=== PATIENT | female | born 1985 ===

== ENCOUNTER 2023-03-27 12:49 | Outpatient (AMB) | payer OTHER, SELFPAY ==
--- NOTE | 2023-03-27 13:10 | HO.SPINEOV ---
Intake Intake Visit Reasons: neck and lower back pain Intake Note: Ms. Hayes is here today c/o neck pain. [facility]. [employer] Required: No Assessment & Plan Assessment & Plan (1) Degenerative disc disease, cervical: Code(s): M50.30 - Other cervical disc degeneration, unspecified cervical region Plan Dear colleague Thank you for referring Jodie Hayes to the office today with a chief complaint of severe neck pain radiating down her right arm. 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 She developed additional right arm pain radiating to her right thumb and migraines with aura over the last 2 years. She also drops objects with her hand. She was operated for carpal tunnel syndrome which addressed some of the hand symptoms but she continues to complain of severe pain radiating down her right arm. She tried physical therapy and cortisone injections. The cortisone injection relieved her right-sided neck pain temporarily but the arm pain persisted. In addition she continues to try Tylenol , cyclobenzaprine and traction PMH: , carpal tunnel release Medications: Cyclobenzaprine and Tylenol Allergies: NKDA Social history: . Recently discontinued smoking Physical Exam: Pleasant female was in obvious agony. Rotation of the cervical spine is limited and painful. Spurling produces pain on the right side of her neck. 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 Normal sensation. Radiological Studies: MRI done at [facility] on 10/07/2021 shows moderate degenerative disc disease C5-C6 with right foraminal stenosis compressing the C6 nerve root. The remainder of the discs are of excellent quality Impression/Plan: This 38-year-old female is suffering from a C6 radiculopathy with neck pain due to degenerative disc disease C5-C6 with right C6 nerve root compression. The MRI cervical spine is more than 1-year-old and therefore I would like to repeat the MRI C-spine before doing a C5-6 total disc arthroplasty on 05/28/2023. Thank you for allowing me to participate in your patients care. total time spent was 50 minutes in counseling ,coordination of plan, personal review of imaging, surgical decision making and subsequent plan Omar Clark MD, PhD Spine Fellowship Trained Neurosurgeon Director, [facility] Orders: Orders MR cervical spine wo con Today M50.30 - Other cervical disc degeneration, unspecified cervical region Coding Level of Care Code New Pt Level 4 (54330) Diagnoses Degenerative disc disease, cervical M50.30
== END 2023-03-27 14:01 | disposition home or self-care (01) ==
PROVIDERS: PCP Internal Medicine; Visit Provider Neurological Surgery
DX: M50.30 Other cervical disc degeneration, unspecified cervical region (principal)
CPT/HCPCS: 99204

== ENCOUNTER → 2023-03-27 12:49 | Outpatient (BNVA) | payer OTHER, SELFPAY | PROVIDERS: PCP Internal Medicine; Visit Provider Neurological Surgery ==

== ENCOUNTER → 2023-05-10 | Outpatient (BNV) | payer OTHER, SELFPAY | PROVIDERS: PCP Internal Medicine; Visit Provider Internal Medicine Cardiovascular Disease | DX: Z01.818 Encounter for other preprocedural examination (principal); M50.30 Other cervical disc degeneration, unspecified cervical region | CPT/HCPCS: 93010 ==

== ENCOUNTER 2023-05-28 08:17 | Day surgery (SDC) | payer OTHER, SELFPAY ==
--- NOTE | 2023-05-10 | ECG_ITS ---
Test Reason : preop Blood Pressure : / mmHG Vent. Rate : 072 BPM Atrial Rate : 072 BPM P-R Int : 116 ms QRS Dur : 076 ms QT Int : 378 ms P-R-T Axes : 066 066 039 degrees QTc Int : 413 ms Normal sinus rhythm Low voltage QRS Borderline ECG No previous ECGs available Referred By: Nohelia Lui Electronically Signed By:DES MARCIAL MD
[2023-05-10 11:04] VITALS: BMI 32.5
--- NOTE | 2023-05-10 13:07 | HO.ANESPROP2 ---
Documented by User: Nohelia Lui NP 05/22/23 10:49 HPI - Anesthesia Eval Consult details Narrative: 38yo F for C5-6 Total Disc Arthroplasty, 05/28/23 PMFSH Active Problems Active Problems: All Active Problems (Updated 05/10/23 @ 10:58 by Jaimie King RN) Degenerative disc disease, cervical (Acute) Past Medical History Medical History Hx of ectopic Hx MRSA infection Back pain Neck pain Eczema Migraines Thyroid nodule Numbness Depression Anxiety Surgical History Surgical History S/P left knee arthroscopy Hx of vein stripping History of bunionectomy of both great toes History of pubovaginal sling History of carpal tunnel surgery of right wrist Social History Social History Household Members: Other Household Members Other:: daughter 18 yrs Housing: Apartment Are you a primary home health aide caregiver to a significant other at home: No Do you presently have visiting nurse or other home services: No Patient Tobacco Use Status: Current everyday Tobacco user Tobacco use type: Cigarette Cigarettes Per Day: 10 Years Smoked: 15 Smoked in Last 30 Days: Yes Use of substances other than those prescribed or required for medical reasons: No Have you been hit, kicked, punched, or otherwise hurt by someone within the past year? If so, by whom?: No Do you feel safe in your current relationship?: Yes Are you DNR?: No Advance Directives: No Advance Directives Information Provided: Yes Advance Directives on File: No Healthcare Proxy: No Recently lost weight without trying: No Nutrition Risks: No Nutritional Risk Patient : No FDLMP: 04/19/2023 : No Poor oral hygiene: No Meds Allergies Allergy/AdvReac Type Severity Reaction Status Date / Time amoxicillin Allergy Severe localized Verified 05/10/23 11:32 IV site-Hives, redness, itching hydrocodone [From Vicodin] Allergy Severe Itching, Verified 05/10/23 10:55 hives ibuprofen [From Motrin] Allergy Severe Hives, Verified 05/10/23 10:55 redness, itching iodine Allergy Severe Itching Verified 05/10/23 10:55 Home Medications Medication Instructions Recorded Confirmed Last Taken Type acetaminophen 500 mg tablet 1,000 mg PO Q6H PRN Pain 05/10/23 05/10/23 Unknown History albuterol sulfate 2.5 mg/3 mL 2.5 mg inhalation Q4H PRN wheezing 05/10/23 05/10/23 Unknown History (0.083 %) solution for nebulization cyclobenzaprine 10 mg tablet 10 mg PO TID PRN muscle spasm 05/10/23 05/10/23 Unknown History dupilumab 300 mg/2 mL subcutaneous mg subcut Q2W 05/10/23 Unknown History syringe (Dupixent) norethindrone (contraceptive) 0.35 0.35 mg PO DAILY 05/10/23 05/10/23 Unknown History mg tablet sumatriptan succinate 50 mg tablet 50 mg PO PRN Migraine Headache 05/10/23 Unknown History Exam Height,Weight and Vital Signs: Height 5 ft 1.5 in Weight 79.379 kg Pertinent Lab Results Pertinent Lab Results: Lab Results 05/10/23 Range/Units 14:22 WBC 10.0 (4.8-10.8) X10*3/uL RBC 4.75 (4.20-5.50) X10*6/uL Hgb 13.8 (12.0-16.0) g/dl Hct 41.4 (37.0-47.0) % MCV 87.2 (80.0-98.0) fL MCH 29.1 (27.0-33.0) pg MCHC 33.3 (31.0-35.0) g/dl RDW 13.5 (11.0-16.0) % Plt Count 280 (160-400) X10*3/uL MPV 9.7 (9.4-12.3) fL Absolute Nucleated RBC 0.000 (0.0-0.012) X10*3/uL Nucleated RBC % (auto) 0.0 (0.0-0.2) /100WBC Sodium 141 (135-145) mmol/L Potassium 4.5 (3.3-5.1) mmol/L Chloride 105 (96-108) mmol/L Carbon Dioxide 29 (22-29) mmol/L Anion Gap 12 (12-20) BUN 8 L (9-16) mg/dL Creatinine 0.77 (0.5-1.4) mg/dL Estim Creat Clear Calc 92.7 Estimated GFR > 60 Random Glucose 92 (60-115) mg/dL Calcium 9.8 (8.4-10.2) mg/dL TSH 0.46 (0.32-4.0) uIU/mL Narrative Narrative: EKG 05/2023 Vent. Rate : 072 BPM Atrial Rate : 072 BPM P-R Int : 116 ms QRS Dur : 076 ms QT Int : 378 ms P-R-T Axes : 066 066 039 degrees QTc Int : 413 ms Normal sinus rhythm Low voltage QRS Borderline ECG No previous ECGs available Assessment and Plan Assessment Anesthesia Assessment: Chart Reviewed Documented by User: Olive Chirinos MD 05/28/23 09:05 [facility] Past Medical History Medical History Hx of ectopic Hx MRSA infection Back pain Neck pain Eczema Migraines Thyroid nodule Numbness Depression Anxiety Family History Family history of problems with anesthesia: No Surgical History Surgical History S/P left knee arthroscopy Hx of vein stripping History of bunionectomy of both great toes History of pubovaginal sling History of carpal tunnel surgery of right wrist History of Problems with Anesthesia: No Social History Social History Household Members: Other Household Members Other:: daughter 18 yrs Housing: Apartment Are you a primary home health aide caregiver to a significant other at home: No Do you presently have visiting nurse or other home services: No Patient Tobacco Use Status: Current everyday Tobacco user Tobacco use type: Cigarette Cigarettes Per Day: 10 Years Smoked: 15 Smoked in Last 30 Days: Yes Use of substances other than those prescribed or required for medical reasons: No Have you been hit, kicked, punched, or otherwise hurt by someone within the past year? If so, by whom?: No Do you feel safe in your current relationship?: Yes Are you DNR?: No Advance Directives: No Advance Directives Information Provided: Yes Advance Directives on File: No Healthcare Proxy: No Recently lost weight without trying: No Nutrition Risks: No Nutritional Risk Patient : No FDLMP: 04/19/2023 : No Poor oral hygiene: No Meds Allergies Allergy/AdvReac Type Severity Reaction Status Date / Time amoxicillin Allergy Severe localized Verified 05/10/23 11:32 IV site-Hives, redness, itching hydrocodone [From Vicodin] Allergy Severe Itching, Verified 05/10/23 10:55 hives ibuprofen [From Motrin] Allergy Severe Hives, Verified 05/10/23 10:55 redness, itching iodine Allergy Severe Itching Verified 05/10/23 10:55 Home Medications Medication Instructions Recorded Confirmed Last Taken Type acetaminophen 500 mg tablet 1,000 mg PO Q6H PRN Pain 05/10/23 05/10/23 Unknown History albuterol sulfate 2.5 mg/3 mL 2.5 mg inhalation Q4H PRN wheezing 05/10/23 05/10/23 Unknown History (0.083 %) solution for nebulization cyclobenzaprine 10 mg tablet 10 mg PO TID PRN muscle spasm 05/10/23 05/10/23 Unknown History dupilumab 300 mg/2 mL subcutaneous mg subcut Q2W 05/10/23 Unknown History syringe (Dupixent) norethindrone (contraceptive) 0.35 0.35 mg PO DAILY 05/10/23 05/10/23 Unknown History mg tablet sumatriptan succinate 50 mg tablet 50 mg PO PRN Migraine Headache 05/10/23 Unknown History Exam Airway Mallampati Class: II TM Dist: >3cm Neck ROM: Full Heart: rrr Lungs: cta Assessment and Plan Assessment Anesthesia Assessment: Anesthesia Plan Discussed and Smoking Cess. Discussed Final Anesthetic Review Family History of Problems with Anesthesia: No History of Problems with Anesthesia: No NPO: Yes ASA Class: III Final Preanesthetic Review: No Changes in Pt Med Stat, Meds/Allgs Chart Reviewed, Consent Obtained/Reviewed and Anes Risks/Benef Reviewed Patient Risk: Intermediate Procedure Risk: Intermediate Anesthetic Plan Anesthetic Plan: GA Disposition: Standard PACU
[2023-05-10 13:56] VITALS: BP 101/66; PULSE 80; RESP 16; O2SAT 99
[2023-05-10 14:32] LABS: Hematocrit 41.4 % (37.0-47.0); Hemoglobin 13.8 g/dl (12.0-16.0); Mean Corpuscular HGB Conc 33.3 g/dl (31.0-35.0); Mean Corpuscular Hemoglobin 29.1 pg (27.0-33.0); Mean Corpuscular Volume 87.2 fL (80.0-98.0); Mean Platelet Volume 9.7 fL (9.4-12.3); Platelet Count 280 X10*3/uL (160-400); Red Blood Count 4.75 X10*6/uL (4.20-5.50); Red Cell Distribution Width 13.5 % (11.0-16.0)
[2023-05-10 15:12] LABS: Anion Gap 12 (12-20); Blood Urea Nitrogen 8 mg/dL (9-16); Calcium 9.8 mg/dL (8.4-10.2); Carbon Dioxide 29 mmol/L (22-29); Chloride 105 mmol/L (96-108); Creatinine Clr Calc Pharmacy 92.7; Estimated Glomerular Filt Rate > 60; Glucose Random 92 mg/dL (60-115); Potassium 4.5 mmol/L (3.3-5.1); Sodium 141 mmol/L (135-145)
[2023-05-10 15:29] LABS: TSH reflex Free T4 0.46 uIU/mL (0.32-4.0)
[2023-05-28] VITALS (11 sets, daily range): BP systolic 118–147; BP diastolic 57–86; PULSE 65–90; RESP 16–18; TEMP 36.1–36.3; O2SAT 96–100; BMI 36.2
--- NOTE | ~2023-05-28 | FL_ITS ---
EXAMINATION: XR FLUOROSCOPY WITH IMAGES CLINICAL INFORMATION: C5-C6 total disc arthroplasty. COMPARISON: None available. TECHNIQUE: Fluoroscopy Supervised By: Dr. Omar Clark. Fluoroscopy Time: 0.1 minute. Cumulative Dose: 2.26 mGy. DAP: 0.291 Gycm2. Images: 3. FINDINGS: Fluoroscopy guidance provided for ACDF at C5-C6 FL/FL guidance in OR IMPRESSION: Fluoroscopy guidance for ACDF at C5-C6.
--- NOTE | 2023-05-28 06:58 | MHC.SHP ---
Pre-Procedural Eval Section A Date of Service: 05/28/23 The patient is an INPATIENT: No Changes since office visit: No Cold of Flu in the past 2 weeks, No New Medical Problems, No Changes in Medication and No Patient answered all questions The History & Physical has been completed within 30 days and I have reviewed it.: No Section B Chief Complaint: Other cervical disc degeneration, unspecified cerv Allergies: Allergies Allergy/AdvReac Type Severity Reaction Status Date / Time amoxicillin Allergy Severe localized Verified 05/10/23 11:32 IV site-Hives, redness, itching hydrocodone [From Vicodin] Allergy Severe Itching, Verified 05/10/23 10:55 hives ibuprofen [From Motrin] Allergy Severe Hives, Verified 05/10/23 10:55 redness, itching iodine Allergy Severe Itching Verified 05/10/23 10:55 Review of Systems Sugical H&P ROS: Negative: Constitution, Cardiovascular, Respiratory, Neurological, Psychiatric, Hem-Onc, Allergic/Immunologic, Gastrointestinal, Genitourinary, Musculoskeletal, Integumentary, Endocrine and Eyes/Ears/Nose/Throat Exam Surgical H&P Exam: Not Evaluated: HEENT, Not Evaluated: Heart, Not Evaluated: Lungs, Not Evaluated: Extremities, Not Evaluated: Abdomen, Not Evaluated: Skin and Not Evaluated: Neurological Plan Diagnosis/Plan: Unchanged I have reviewed the history and physical and performed a pertinent physical examination on my patient. No changes have occurred unless specified. C5-6 total disk arthroplasty Time Spent With Patient Time: Total time managing care of this patient today _12___ minutes.
[2023-05-28 08:58] LABS: UPreg QC Valid YES; Urine Pregnancy NEGATIVE (NEGATIVE)
[2023-05-28] MEDS: Gabapentin 300 MG CAPSULE PO (09:12)
[2023-05-28] MEDS: Scopolamine 1.5 MG PATCH.TD.3 TRANSDERMA (09:12)
[2023-05-28] MEDS: methocarbamoL 750 MG TABLET PO (09:12)
[2023-05-28] MEDS: vancomycin HCL 1,500 MG in 0.9 % Sodium Chloride 500 ML 333.33 MG IV (09:13)
[2023-05-28] MEDS: Lactated Ringers 1,000 ML 100 ML IVCONT (09:13)
--- NOTE | 2023-05-28 11:44 | W.PM.OPN ---
Operative Note Operative Note Date of Service: 05/28/23 Narrative: Preoperative Diagnosis: neck pain and right cervical radiculopathy Procedure: [id number] discectomy, arthrodesis and implantation cage ; C5-6 anterior instrumentation ; local autograft; microscope Informed Consent was obtained for this operation. I have explained the nature, purpose and benefits of the operation. I have discussed the risks and benefit of the operation including possible complications or adverse events with patient/family. Alternative(s) were discussed with the patient with their relative benefits and risks as well as the consequences of not accepting the operation were included in obtaining consent. Surgeon: GAL ENGLAND MD, PHD Procedure Assisted By: caden Caraballo Description of Procedure: this 38-year-old female suffering from neck pain and right cervical radiculopathy. An MRI shows degenerative disc disease C5-6 with osteophyte formation and I foraminal stenosis. The procedure complications were explained. The patient was consented. The patient was brought to the operating room and endotracheally intubated. The patient was put in supine position with slight extension of the neck. Prep and drape was done followed by timeout. A mid cervical incision was made followed by opening of the platysma. The prevertebral fascia was reached following the natural planes while the physician assistant farm operations manager provided manual retraction. The prevertebral fascia was opened to expose the disc space. A spinal needle was placed in the disk space to confirm the correct level with xray. A large anterior osteophyte that fused the anterior part of C5 and C6 was encountered. I needed to resect the osseous bridge to gain access to the disc space. Originally, the patient was scheduled to undergo total disc arthroplasty but after contouring so much bone formation I switched procedure to an anterior diskectomy and fusion as in my opinion this would be more cost effective as the expensive artificial disc implant is most likely going to fuse with so much bone formation already present. The longus colli muscles were released bilaterally and a self retaining retractor was inserted. Two Sarona pins were placed in the C5-C6 vertebral bodies and distraction was give over the interspace. The discectomy was completed toward the posterior annulus of the disc. The microscope was brought in. The remainder of the discectomy was completed. The posterior ligament was opened and resected to expose the underlying dura. Osteophytes were resected from the body of C5-C6 and saved for autograft. Bilateral foraminotomies were done. Significant foraminal stenosis was encountered on the right side with large osteophytes that were resected to decompress the exiting nerve root. The endplates were prepared after which a 6 mm cage filled with autograft was inserted into the disc space. A separate attached plate was locked down with 2 x 14 mm screws as anterior instrumentation. Final x-rays in AP and lateral projection showed a satisfactory position of the implant. The physician assistant farm operations manager took over. The Sarona pin was removed. Hemostasis was done. He closed the incision in 2 layers with a 3-0 Vicryl. Steri-Strips used to approximate incision. An OpSite with Tegaderm was used to cover the incision. All sponge and needle counts were correct. Patient was extubated and transported in stable is to recovery room. Anesthesia: General Estimated Blood Loss (ml): minimal Duration of Surgery: 60 minutes Postoperative Plan: Discharge home Complications: None
--- NOTE | 2023-05-28 11:46 | PM.DS ---
DS: Providers Provider Date of Service: 05/28/23 Date of discharge: 05/28/23 Primary care physician: Ashley Gibson MD Admitting clinician: Omar Clark DS: Diagnosis Discharge Diagnosis (1) Degenerative disc disease, cervical: Status: Acute DS: Summary Time Attestation Discharge coordination time: Less than 30 minutes Quality: Safe Use of Opioids Does Pt have an Active Cancer Diagnosis on the Problem List?: No Quality: Stroke Does the patient have a stroke diagnosis?: No Physical Exam Vital Signs: Vital Signs: Last Vital Signs Temp 97.0 F 05/28/23 09:23 Pulse 65 05/28/23 09:23 Resp 16 05/28/23 09:23 BP 118/67 05/28/23 09:23 Pulse Ox 98 05/28/23 09:23 O2 Del Method Room Air 05/28/23 09:23 BMI result Body Mass Index 36.2 DS: Data Data Completed and Pending Labs on day of discharge: Laboratory Results - last 24 hr 05/28/23 08:40 Urine Test NEGATIVE Discharge Plan Discharge Patient Disposition: Home, Self-Care Referrals: Ashley Gibson MD [Primary Care Provider] - 1 Week Discharge Medications: New docusate sodium [Colace] 100 mg capsule 100 mg PO BID Qty: 20 0RF oxycodone 5 mg tablet See Rx Instructions .ROUTE .COMPLEX PRN (Reason: pain) Qty: 30 0RF Rx Instructions: 1 tab po q4 hours prn pain ; Partial Fill upon patient request. Continued cyclobenzaprine 10 mg tablet 10 mg PO TID PRN (Reason: muscle spasm) albuterol sulfate 2.5 mg /3 mL (0.083 %) solution for nebulization 2.5 mg inhalation Q4H PRN (Reason: wheezing) sumatriptan succinate 50 mg tablet 50 mg PO PRN (Reason: Migraine Headache) acetaminophen 500 mg Tablet 1,000 mg PO Q6H PRN (Reason: Pain) norethindrone (contraceptive) 0.35 mg tablet 0.35 mg PO DAILY Dupixent Syringe 300 mg/2 mL syringe subcut Q2W Discharge Orders: Discharge Order (Routine); Ordered 05/28/23 Ordered By: Robb Middleton Diet: Advance to usual diet Activity on Discharge: As tolerated Activity Restrictions/Additional Instructions: After your spinal surgery we ask you to observe the following restrictions/guidelines: Activity: It is normal to feel some discomfort as you increase your activity, but that will improve with time. We ask you avoid heavy lifting or acitivities that cause pain. As a general rule, 8lbs is a safe limit for lifting right after surgery. Walk as much as you feel comfortable but not to exhaustion. You will feel extra tired the first few days after surgery. Stay well hydrated. It is OK to walk up and down stairs You may return to driving when you are off narcotics (such as vicodin, oxycodone, dilaudid, etc), and you are back to normal functional capacity. If you have any concerns please check with office before driving. Return to work is specific to each patient and each surgery, so please speak with your doctor/PA at first follow up. Please bring paperwork such as FMLA at that time if you need it filled out. Medications: For optimum pain control, it is best to start with a combination of 500 mg of Tylenol every 4 hours with 600 mg of Motrin every 8 hours, and use narcotics as needed in between for breakthrough pain. We will give you a short supply of narcotics after surgery (usually one weeks worth). If you need more please call the office but do not use more than prescribed. You will need to give our office 48 hours notice if you need narcotics refilled and we do not fill narcotics on weekends or evenings. If you are on a narcotic, it is a good idea to take a stool softener such as colace or senna to avoid constipation If you take blood thinner such as aspirin, Plavix, Coumadin, Effient, Eliquis etc for conditions such as Afib, DVT, Pulmonary embolus, coronary disease, stents etc please speak with your surgeon about specific details as to when you can resume these medications. You can resume NSAIDs on post op day 1 (eg: Motrin, Naproxen, etc). Follow up: Please call the office, , after surgery to arrange a 3 week follow up for wound check. Wound Care: You may remove your dressing on the first day after surgery. You may leave open to air. Please do not remove the steri strips underneath. they will fall off on their own in one week. IT IS NORMAL FOR THE WOUND TO OOZE OR BE BLOODY FOR A FEW DAYS AFTER SURGERY. IF THIS HAPPENS JUST PLACE NEW DRESSING OVER IT TO AVOID STAINING CLOTHES. You may shower on post op day # 1 We ask that you do not let the water soak the wound. If it does get wet, just towel dry lightly. Please do not scrub your incision or place any type of chemical/ointment on the wound. No tub baths, pools or jacuzzis for one month. If you have any leaking or redness from your wound, or fevers, please call office
[2023-05-28] MEDS: fentaNYL citrate/PF 100 MCG/2 ML VIAL 25 MCG IVPUSH ×4 (11:58→12:15)
[2023-05-28] MEDS: oxyCODONE HCl Immed Release 5 MG TABLET PO (11:59)
[2023-05-28] MEDS: HYDROmorphone HCl 0.5 MG/0.5 ML SYRINGE IVPUSH (12:20)
[2023-05-28] MEDS: ondansetron HCL 4 MG/2 ML VIAL IVPUSH (12:53)
== END 2023-05-28 13:36 | disposition home or self-care (01) ==
PROVIDERS: Nurse Practitioner; PCP Internal Medicine; Visit Provider Neurological Surgery
PROC: (CPT 22551; principal; 2023-05-28 09:50)
DX: M50.30 Other cervical disc degeneration, unspecified cervical region (principal); M54.12 Radiculopathy, cervical region; E04.1 Nontoxic single thyroid nodule; F32.A Depression, unspecified; Z79.899 Other long term (current) drug therapy; Z88.1 Allergy status to other antibiotic agents; Z88.8 Allergy status to other drugs, medicaments and biological substances; Z91.041 Radiographic dye allergy status; Z98.890 Other specified postprocedural states; F17.210 Nicotine dependence, cigarettes, uncomplicated
CPT/HCPCS: 22551; 22853; 20936; 22845; 36415; 80048; 81025; 84443; 85027; 93005; C1713; J0131; J1170; J2250; J2405; J2704; J3010; J3371

== ENCOUNTER → 2023-05-28 08:17 | Outpatient (BNV) | payer OTHER, SELFPAY | PROVIDERS: PCP Internal Medicine; Visit Provider Neurological Surgery | DX: M50.30 Other cervical disc degeneration, unspecified cervical region (principal) | CPT/HCPCS: 20936; 22551; 22845; 22853; 99499 ==

== ENCOUNTER 2023-06-26 12:47 | Outpatient (AMB) | payer OTHER, SELFPAY ==
--- NOTE | 2023-06-26 13:04 | A.OFFVIS_ITS ---
Intake Intake Visit Reasons: 1st. 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: No Allergies amoxicillin Allergy (Severe, Verified 05/28/23 09:14) localized IV site-Hives, redness, itching hydrocodone [From Vicodin] Allergy (Severe, Verified 05/28/23 09:14) Itching, hives ibuprofen [From Motrin] Allergy (Severe, Verified 05/28/23 09:14) Hives, redness, itching iodine Allergy (Severe, Verified 05/28/23 09:14) Itching PFSH Medical History Hx of ectopic Hx MRSA infection Back pain Neck pain Eczema Migraines Thyroid nodule Numbness Depression Anxiety Surgical History S/P left knee arthroscopy Hx of vein stripping History of bunionectomy of both great toes History of pubovaginal sling History of carpal tunnel surgery of right wrist Social History Household Members: Other Household Members Other:: daughter 18 yrs Housing: Apartment Are you a primary career services representative to a significant other at home: No Do you presently have visiting nurse or other home services: No Patient Tobacco Use Status: Current everyday Tobacco user Tobacco use type: Cigarette Cigarettes Per Day: 10 Years Smoked: 15 Assessment & Plan Assessment & Plan (1) Status post lumbar spine surgery for decompression of spinal cord: Code(s): Z98.890 - Other specified postprocedural states Plan Procedure: C5-6 ACDF Jodie comes in today for her 1st postoperative visit. She reports she is very satisfied with the surgery and feels much better than she did pre-operatively. She no longer suffers from her right-sided shooting radiculopathy. She reports that she continues to have some pressure/tenderness around the incision site but is otherwise doing well. She is scheduled to return to work on July 09 and was inquiring about whether or not we will approve her to do so. At this time I believe she is continuing to heal well and see no reason that she can not return to work. Full strength in her upper extremities. No neurological deficits. Patient is able to ambulate well, rises from a seated position without difficulty. In cision sites are closed, well healing, with no signs of drainage. No need for regular follow up with the patient, we will follow up on an as needed basis as she continues to do very well and has no concerns at this time. Rufus Clark MD,PhD [facility] Coding Level of Care Code Global (24162) Diagnoses Status post lumbar spine surgery for decompression of spinal cord Z98.890
== END 2023-06-26 13:15 | disposition home or self-care (01) ==
PROVIDERS: PCP Internal Medicine; Visit Provider Physician Assistant
DX: Z98.890 Other specified postprocedural states (principal)
CPT/HCPCS: 99024

== ENCOUNTER → 2023-06-26 12:47 | Outpatient (BNVA) | payer OTHER, SELFPAY | PROVIDERS: PCP Internal Medicine; Visit Provider Physician Assistant ==

== ENCOUNTER 2024-08-24 14:11 | Outpatient (REF) | payer OTHER, SELFPAY | END 2024-08-24 14:12 | disposition home or self-care (01) | LOC: CF 14:11 | DX: Z13.89 Encounter for screening for other disorder (principal) ==